=== PATIENT | male | born 1990 | race Caucasian/White ===

== ENCOUNTER 2019-03-29 09:34 | Emergency (ER) | payer MEDICARE, MEDICAID ==
--- NOTE | 2019-03-29 11:14 | Diagnostic Imaging Report ---
Exam: Pelvis HISTORY: Trauma Findings: Single frontal projection pelvis demonstrate no evidence of fracture dislocation. The hip joints are clear joints and pubic symphysis are intact. IMPRESSION: Essentially unremarkable examination of the pelvis.
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
== END 2019-03-29 11:06 | disposition home or self-care (01) ==
LOC: ER 09:34
DX: S73.102A Unspecified sprain of left hip, initial encounter (principal); S76.012A Strain of muscle, fascia and tendon of left hip, initial encounter; E66.9 Obesity, unspecified; V03.90XA Pedestrian on foot injured in collision with car, pick-up truck or van, unspecified whether traffic or nontraffic accident, initial encounter; Y93.89 Activity, other specified; Y92.410 Unspecified street and highway as the place of occurrence of the external cause; Y99.8 Other external cause status
CPT/HCPCS: 99283; 96372; 72170; J1885; Z7502